=== PATIENT | female | born 1935 | race Asian ===

== ENCOUNTER 2016-11-23 10:06 | Outpatient (CLI) | payer OTHER | END 2016-11-23 19:07 | disposition home or self-care (01) | LOC: MAMMO 10:06 | DX: Z12.31 Encounter for screening mammogram for malignant neoplasm of breast (principal) | CPT/HCPCS: G0202-TC ==

== ENCOUNTER 2017-05-25 14:30 | Outpatient (CLI) | payer OTHER ==
[2017-05-25 14:46] LABS: PLATELET COUNT 214 K/uL (152-353)
[2017-05-25 15:53] LABS: POTASSIUM 4.9 mmol/L (3.6-5.2)
== END 2017-05-25 15:30 | disposition home or self-care (01) ==
LOC: LAB 14:30
PROVIDERS: Nurse Practitioner Family
DX: I10 Essential (primary) hypertension (principal); E11.9 Type 2 diabetes mellitus without complications; R53.83 Other fatigue; E66.8 Other obesity; R53.81 Other malaise; K59.09 Other constipation
CPT/HCPCS: 80053; 80061; 83036; 84436; 84443; 85027

== ENCOUNTER 2017-07-07 13:54 | Outpatient (CLI) | payer OTHER ==
[2017-07-07 14:25] LABS: PLATELET COUNT 226 K/uL (152-353)
[2017-07-07 14:45] LABS: POTASSIUM 4.4 mmol/L (3.6-5.2)
== END 2017-07-07 19:12 | disposition home or self-care (01) ==
LOC: LAB 13:54
PROVIDERS: Nurse Practitioner Family
DX: I10 Essential (primary) hypertension (principal); E11.9 Type 2 diabetes mellitus without complications; R29.898 Other symptoms and signs involving the musculoskeletal system; R53.81 Other malaise; E66.9 Obesity, unspecified; R53.83 Other fatigue; Z00.00 Encounter for general adult medical examination without abnormal findings; Z79.899 Other long term (current) drug therapy
CPT/HCPCS: 80053; 80061; 83036; 84436; 84443; 85027

== ENCOUNTER 2018-02-13 13:49 | Outpatient (CLI) | payer OTHER ==
[2018-02-13 14:02] LABS: PLATELET COUNT 183 K/uL (152-353)
[2018-02-13 14:35] LABS: POTASSIUM 4.2 mmol/L (3.6-5.2)
== END 2018-02-13 23:06 | disposition home or self-care (01) ==
LOC: LAB 13:49
PROVIDERS: Nurse Practitioner Family
DX: I10 Essential (primary) hypertension (principal); E11.9 Type 2 diabetes mellitus without complications; R53.81 Other malaise; R53.83 Other fatigue; Z79.899 Other long term (current) drug therapy; Z51.81 Encounter for therapeutic drug level monitoring
CPT/HCPCS: 80053; 80061; 83036; 84436; 84443; 85027